=== PATIENT | female | born 1930 | race Caucasian/White ===

== ENCOUNTER 2017-01-16 13:35 | Emergency (ER) | payer MEDICARE ==
[~2017-01-16] VITALS: Wt 65.8 kg
[~2017-01-16 13:35] MED LIST: AMLODIPINE10 MG PO; BUSPIRONE10 MG PO; CARAFATE1 G1 PO; CIPRO500 MG PO; CITALOPRAM20 MG PO; MAG-OX 400400 MG PO; NORCO 5-325 TA1 EACH PO; POTASSIUM20 MEQ PO; PRILOSEC20 MG PO; SYNTHROID,LEVO50 MCG PO; VITAMIN D-32000 UNIT PO; ZESTRIL,PRINIVIL5 MG PO
[2017-01-16 13:36] VITALS: BP 157/90
[2017-01-16 14:21] LABS: BASO % 0.2 % (0.0-1.0); EOS # 0.1 10*3/uL (0.0-0.4); EOS % 1.6 % (1.0-4.0); HEMATOCRIT 33.7 % (37.0-47.0); HEMOGLOBIN 10.8 g/dl (12.0-16.0); LYMPH # 1.3 10*3/uL (1.3-4.4); LYMPH % 15.9 % (27.0-41.0); MEAN CELL VOLUME 100.6 fl (81.0-99.0); MEAN CORPUSCULAR HGB 32.2 pg (27.0-31.0); MEAN PLATELET VOLUME 11.1 fl (9.6-12.3); MONO # 0.6 10*3/uL (0.1-1.0); MONO % 6.9 % (3.0-9.0); NEUT # 6.2 10*3/uL (2.3-7.9); NEUT % 75.2 % (47.0-73.0); PLATELET COUNT AUTOMATED 127 10*3/uL (130-400); RED BLOOD COUNT 3.35 10*6/uL (4.10-5.10); RED CELL DISTRI WIDTH 13.7 % (0-14.5); WHITE BLOOD COUNT 8.3 10*3/uL (4.8-10.8)
[2017-01-16 14:36] LABS: ALBUMIN 3.7 gm/dl (3.1-4.5); BILIRUBIN, TOTAL 0.4 mg/dl (0.2-1.0); POTASSIUM 5.6 mmol/L (3.5-5.1); TOTAL PROTEIN 6.5 gm/dL (6.4-8.2)
== END 2017-01-16 19:02 | disposition home or self-care (01) ==
LOC: ED 13:35
PROVIDERS: Emergency Medicine
DX: S01.81XA Laceration without foreign body of other part of head, initial encounter (principal); Z86.73 Personal history of transient ischemic attack (TIA), and cerebral infarction without residual deficits; K21.9 Gastro-esophageal reflux disease without esophagitis; I12.9 Hypertensive chronic kidney disease with stage 1 through stage 4 chronic kidney disease, or unspecified chronic kidney disease; N18.9 Chronic kidney disease, unspecified; E03.9 Hypothyroidism, unspecified; Z79.899 Other long term (current) drug therapy; Z88.1 Allergy status to other antibiotic agents; W18.39XA Other fall on same level, initial encounter; Y93.89 Activity, other specified; Y92.009 Unspecified place in unspecified non-institutional (private) residence as the place of occurrence of the external cause; Y99.8 Other external cause status

== ENCOUNTER → 2017-04-25 | Outpatient (CLI) | payer MEDICARE ==
[2017-04-25 16:20] LABS: BASO % 0.2 % (0.0-1.0); EOS # 0.1 10*3/uL (0.0-0.4); EOS % 1.2 % (1.0-4.0); HEMATOCRIT 34.7 % (37.0-47.0); HEMOGLOBIN 10.8 g/dl (12.0-16.0); LYMPH # 1.4 10*3/uL (1.3-4.4); LYMPH % 15.4 % (27.0-41.0); MEAN CELL VOLUME 99.1 fl (81.0-99.0); MEAN CORPUSCULAR HGB 30.9 pg (27.0-31.0); MEAN CORPUSCULAR HGB CONC 31.1 g/dl (33.0-37.0); MEAN PLATELET VOLUME 11.5 fl (9.6-12.3); MONO # 0.7 10*3/uL (0.1-1.0); MONO % 7.8 % (3.0-9.0); NEUT % 75.1 % (47.0-73.0); PLATELET COUNT AUTOMATED 145 10*3/uL (130-400); RED CELL DISTRI WIDTH 12.8 % (0-14.5); WHITE BLOOD COUNT 9.3 10*3/uL (4.8-10.8)
[2017-04-25 16:35] LABS: ALBUMIN 3.8 gm/dl (3.1-4.5); CREATININE 1.65 mg/dL (0.55-1.02); POTASSIUM 5.3 mmol/L (3.5-5.1); TOTAL PROTEIN 6.8 gm/dL (6.4-8.2)
== END | disposition home or self-care (01) ==
LOC: LAB 15:10
PROVIDERS: Family Medicine
DX: I51.7 Cardiomegaly (principal); I50.9 Heart failure, unspecified; M79.89 Other specified soft tissue disorders

== ENCOUNTER → 2017-05-01 | Outpatient (CLI) | payer MEDICARE ==
[2017-05-01 11:31] LABS: ALBUMIN 3.7 gm/dl (3.1-4.5); CREATININE 2.79 mg/dL (0.55-1.02); POTASSIUM 5.6 mmol/L (3.5-5.1)
[2017-05-01 11:42] LABS: THYROID STIM HORMONE (HS) 1.95 uIU/ml (0.358-4.75)
== END | disposition home or self-care (01) ==
LOC: LAB 10:44
PROVIDERS: Internal Medicine Cardiovascular Disease
DX: R60.0 Localized edema (principal); Z86.73 Personal history of transient ischemic attack (TIA), and cerebral infarction without residual deficits; Z79.899 Other long term (current) drug therapy

== ENCOUNTER → 2017-05-04 | Outpatient (CLI) | payer MEDICARE ==
[2017-05-04 17:19] LABS: BILIRUBIN NEGATIVE (NEGATIVE); BLOOD NEGATIVE (NEGATIVE); CLARITY CLEAR (CLEAR); COLOR YELLOW (YELLOW); GLUCOSE NEGATIVE (NEGATIVE); KETONE NEGATIVE (NEGATIVE); LEUKO ESTERASE TRACE (NEGATIVE); NITRITE NEGATIVE (NEGATIVE); SPECIFIC GRAVITY <= 1.005 (1.005-1.030); UROBILINOGEN 0.2 E.U./dl (0.2-1.0)
[2017-05-04 17:30] LABS: CREATININE 2.35 mg/dL (0.55-1.02); PHOSPHOROUS 4.2 mg/dL (2.5-4.9)
[2017-05-04 17:37] LABS: BACTERIA TRACE; EPITHELIAL CELLS 40-45; RBC 0-2 rbc/hpf (0-2)
[2017-05-04 18:07] LABS: PTH INTACT 273.4 pg/mL (14.0-72.0)
[2017-05-04 18:08] LABS: VITAMIN D, 25-HYDROXY 41.5 ng/mL (30-100)
[2017-05-05 15:07] LABS: CREATININE,URINE 49.4 mg/dL (Not Estab.); MICRO ALBUMIN/CRE RATIO 9.5 (0.0-30.0)
== END ==
LOC: LAB 16:48
PROVIDERS: Internal Medicine Nephrology
DX: N18.9 Chronic kidney disease, unspecified (principal); E87.5 Hyperkalemia; I50.9 Heart failure, unspecified; Z79.899 Other long term (current) drug therapy

== ENCOUNTER → 2017-05-07 | Outpatient (CLI) | payer MEDICARE ==
[2017-05-07 13:37] LABS: HEMATOCRIT 36.6 % (37.0-47.0); HEMOGLOBIN 11.5 g/dl (12.0-16.0)
[2017-05-07 13:58] LABS: CREATININE 2.55 mg/dL (0.55-1.02); PHOSPHOROUS 3.9 mg/dL (2.5-4.9); POTASSIUM 4.2 mmol/L (3.5-5.1)
[2017-05-07 14:22] LABS: VITAMIN D, 25-HYDROXY 49.3 ng/mL (30-100)
[2017-05-07 14:23] LABS: PTH INTACT 250.8 pg/mL (14.0-72.0)
[2017-05-07 18:32] LABS: BILIRUBIN NEGATIVE (NEGATIVE); BLOOD NEGATIVE (NEGATIVE); CLARITY CLEAR (CLEAR); COLOR YELLOW (YELLOW); GLUCOSE NEGATIVE (NEGATIVE); KETONE NEGATIVE (NEGATIVE); LEUKO ESTERASE NEGATIVE (NEGATIVE); NITRITE NEGATIVE (NEGATIVE); PH 5.5 (5.0-9.0); UROBILINOGEN 0.2 E.U./dl (0.2-1.0)
[2017-05-07 18:49] LABS: BACTERIA 2+; EPITHELIAL CELLS 20-25; HYALINE CAST TNTC; RBC 0-2 rbc/hpf (0-2)
[2017-05-08 10:05] LABS: CREATININE,URINE 83.3 mg/dL (Not Estab.)
== END | disposition home or self-care (01) ==
LOC: LAB 12:56
PROVIDERS: Internal Medicine Nephrology
DX: N18.9 Chronic kidney disease, unspecified (principal); E87.5 Hyperkalemia; E55.9 Vitamin D deficiency, unspecified; N39.0 Urinary tract infection, site not specified; Z79.899 Other long term (current) drug therapy

== ENCOUNTER 2017-05-09 16:16 | Emergency (ER) | payer MEDICARE ==
[~2017-05-09] VITALS: Wt 61.2 kg
[2017-05-09 16:22] VITALS: BP 155/55
== END 2017-05-09 16:48 | disposition home or self-care (01) ==
LOC: ED 16:16
DX: S61.411A Laceration without foreign body of right hand, initial encounter (principal); Z88.2 Allergy status to sulfonamides; Z88.1 Allergy status to other antibiotic agents; Z88.8 Allergy status to other drugs, medicaments and biological substances; Z79.899 Other long term (current) drug therapy; Z90.49 Acquired absence of other specified parts of digestive tract; X58.XXXA Exposure to other specified factors, initial encounter; Y93.89 Activity, other specified; Y92.89 Other specified places as the place of occurrence of the external cause; Y99.8 Other external cause status

== ENCOUNTER → 2017-05-15 | Outpatient (CLI) | payer MEDICARE | END | disposition home or self-care (01) | LOC: US 01:22 | DX: N17.9 Acute kidney failure, unspecified (principal) ==

== ENCOUNTER → 2017-06-01 | Outpatient (CLI) | payer MEDICARE ==
[2017-06-01 15:07] LABS: CREATININE 3.18 mg/dL (0.55-1.02); POTASSIUM 4.2 mmol/L (3.5-5.1)
== END | disposition home or self-care (01) ==
LOC: LAB 13:59
PROVIDERS: Internal Medicine Nephrology
DX: N17.9 Acute kidney failure, unspecified (principal)

== ENCOUNTER → 2017-06-21 | Outpatient (CLI) | payer MEDICARE ==
[2017-06-21 12:05] LABS: CREATININE 2.37 mg/dL (0.55-1.02); POTASSIUM 4.1 mmol/L (3.5-5.1)
== END | disposition home or self-care (01) ==
LOC: LAB 11:17
PROVIDERS: Internal Medicine Nephrology
DX: N17.9 Acute kidney failure, unspecified (principal)

== ENCOUNTER → 2017-09-23 | Outpatient (CLI) | payer MEDICARE ==
[2017-09-25 11:06] LABS: CREATININE,URINE 84.3 mg/dL (Not Estab.); MICROALBUMIN EXCRETION RATE 193.8 ug/min (0.0-20.0)
== END | disposition home or self-care (01) ==
LOC: LAB 13:52
PROVIDERS: Internal Medicine Nephrology
DX: N18.4 Chronic kidney disease, stage 4 (severe) (principal)

== ENCOUNTER 2017-10-22 22:47 | Inpatient (IN) | payer MEDICARE ==
[~2017-10-22] VITALS: Ht 157.4 cm; Wt 60.8 kg
--- NOTE | ~2017-10-22 | CON ---
[place], [place] REPORT OF CONSULTATION NAME: CHLESI ZULUAGA UNIT #: [id number] ROOM: 503 DOCTOR: KELSEY RYDER FACCSUDHIR BIRTHDATE: [birth year] DOS: 10/24/2017 CARDIOLOGY CONSULTATION HISTORY OF PRESENT ILLNESS: The patient came in with history of left chest discomfort now or prior to coming to the Emergency Room and also mild dyspnea and the patient has history of coronary artery disease, severe aortic stenosis and a myocardial infarction and chronic kidney disease, CKD III or IV and Nephrology is following the patient and underwent a myocardial perfusion scan is abnormal indicating myocardial ischemia. The patient has a previous history of CVA about 3 years ago. The patient has a history of chronic aortic stenosis, some left ventricular dysfunction and history of CVA in the past and diverticulosis. Mild expressive aphasia. History of hypertension, hypertensive cardiovascular disease, hypertensive renovascular disease. The patient has a previous history of bilateral knee replacement, cataract surgery and colon resection. PHYSICAL EXAMINATION: VITAL SIGNS: Stable. GENERAL: Alert. SKIN: Warm and not diaphoretic. NECK: Supple. LUNGS: No rales heard. HEART: S1, S2 regular, 2-3/6 systolic murmur. ABDOMEN: Soft. Color is good, not diaphoretic. EXTREMITIES: No cyanosis. IMPRESSION: 1. Left ventricular dysfunction. 2. Aortic stenosis. 3. Myocardial ischemic heart disease. PLAN: May consider a coronary artery possible revascularization. Options, procedure, complications, morbidity, mortality risk is explained and renal consultation to monitor the chronic kidney disease. SUDHIR COLE MD CM:CONSTR:REPORT OF CONSULTATION 1114 10/25/17 0058 interface CHANTE MUÑOZ MD
[2017-10-22 22:50] VITALS: BP 153/60
[2017-10-22] MEDS ORDERED: TOPROL XL25 MG PO (23:07)
[2017-10-22 23:21] VITALS: BP 112/49
[2017-10-22 23:29] LABS: ACT PARTIAL THROMBO TIME 24.7 SECONDS (20.8-31.5)
[2017-10-22 23:30] LABS: BASO % 0.3 % (0.0-1.0); EOS # 0.1 10*3/uL (0.0-0.4); EOS % 1.1 % (1.0-4.0); HEMATOCRIT 32.8 % (37.0-47.0); HEMOGLOBIN 10.6 g/dl (12.0-16.0); LYMPH # 2.2 10*3/uL (1.3-4.4); LYMPH % 21.3 % (27.0-41.0); MEAN CELL VOLUME 98.5 fl (81.0-99.0); MEAN CORPUSCULAR HGB 31.8 pg (27.0-31.0); MEAN CORPUSCULAR HGB CONC 32.3 g/dl (33.0-37.0); MEAN PLATELET VOLUME 10.9 fl (9.6-12.3); MONO % 9.4 % (3.0-9.0); NEUT # 7.1 10*3/uL (2.3-7.9); NEUT % 67.7 % (47.0-73.0); PLATELET COUNT AUTOMATED 129 10*3/uL (130-400); RED BLOOD COUNT 3.33 10*6/uL (4.10-5.10); RED CELL DISTRI WIDTH 13.1 % (0-14.5); WHITE BLOOD COUNT 10.5 10*3/uL (4.8-10.8)
[2017-10-22 23:40] LABS: ALBUMIN 3.5 gm/dl (3.1-4.5); CREATININE 2.48 mg/dL (0.55-1.02); POTASSIUM 3.9 mmol/L (3.5-5.1); TOTAL PROTEIN 6.2 gm/dL (6.4-8.2)
[2017-10-22 23:44] LABS: TROPONIN I 0.067 ng/ml (<0.045)
[2017-10-22 23:55] VITALS: BP 132/59
[2017-10-23 00:06] VITALS: BP 137/65
[2017-10-23 00:20] VITALS: BP 125/79
[2017-10-23 03:24] LABS: BASO % 0.2 % (0.0-1.0); EOS # 0.1 10*3/uL (0.0-0.4); EOS % 1.3 % (1.0-4.0); HEMATOCRIT 30.2 % (37.0-47.0); HEMOGLOBIN 9.8 g/dl (12.0-16.0); LYMPH # 2.3 10*3/uL (1.3-4.4); MEAN CELL VOLUME 97.7 fl (81.0-99.0); MEAN CORPUSCULAR HGB 31.7 pg (27.0-31.0); MEAN CORPUSCULAR HGB CONC 32.5 g/dl (33.0-37.0); MEAN PLATELET VOLUME 10.1 fl (9.6-12.3); MONO # 0.8 10*3/uL (0.1-1.0); MONO % 9.2 % (3.0-9.0); NEUT # 5.8 10*3/uL (2.3-7.9); NEUT % 63.9 % (47.0-73.0); PLATELET COUNT AUTOMATED 116 10*3/uL (130-400); RED BLOOD COUNT 3.09 10*6/uL (4.10-5.10); RED CELL DISTRI WIDTH 13.1 % (0-14.5); WHITE BLOOD COUNT 9.1 10*3/uL (4.8-10.8)
[2017-10-23 03:40] LABS: ALBUMIN 3.1 gm/dl (3.1-4.5); CREATININE 2.33 mg/dL (0.55-1.02); PHOSPHOROUS 3.9 mg/dL (2.5-4.9); POTASSIUM 3.5 mmol/L (3.5-5.1); TOTAL PROTEIN 5.5 gm/dL (6.4-8.2)
[2017-10-23 03:48] LABS: THYROID STIM HORMONE (HS) 3.05 uIU/ml (0.358-4.75)
[2017-10-23 08:00] VITALS: BP 160/55
[2017-10-23] MEDS ORDERED: FUROSEMIDE20 M1 PO (09:56)
[2017-10-23] MEDS ORDERED: METOLAZONE2.5 MG PO (10:27)
[2017-10-23] MEDS ORDERED: CALCITRIOL0.25 MCG PO (10:28)
[2017-10-23 12:00] VITALS: BP 150/57
[2017-10-23 16:00] VITALS: BP 132/54
[2017-10-23 20:00] VITALS: BP 122/51
[2017-10-24] VITALS: BP 118/61
[2017-10-24 08:00] VITALS: BP 136/86
== END 2017-10-24 08:38 | disposition other institution (70) | DRG 281 ==
LOC: ED 22:47 → 5E 23:56 → EDHOLD 23:56 → 5E 10-23 00:03
PROVIDERS: Emergency Medicine Emergency Medical Services; Internal Medicine Hospice and Palliative Medicine
PROC: 4A02XM4 Measurement of Cardiac Total Activity, External Approach (ICD-10-PCS; principal; 2017-10-23)
PROC: 3E073KZ Introduction of Other Diagnostic Substance into Coronary Artery, Percutaneous Approach (ICD-10-PCS; principal; 2017-10-23)
DX: I21.4 Non-ST elevation (NSTEMI) myocardial infarction (principal); N18.4 Chronic kidney disease, stage 4 (severe); E83.41 Hypermagnesemia; I35.0 Nonrheumatic aortic (valve) stenosis; D64.9 Anemia, unspecified; I25.119 Atherosclerotic heart disease of native coronary artery with unspecified angina pectoris; D72.810 Lymphocytopenia; I12.9 Hypertensive chronic kidney disease with stage 1 through stage 4 chronic kidney disease, or unspecified chronic kidney disease; E03.9 Hypothyroidism, unspecified; Z96.653 Presence of artificial knee joint, bilateral; K21.9 Gastro-esophageal reflux disease without esophagitis; K57.90 Diverticulosis of intestine, part unspecified, without perforation or abscess without bleeding; H54.61 Unqualified visual loss, right eye, normal vision left eye; Z88.1 Allergy status to other antibiotic agents; Z88.2 Allergy status to sulfonamides; Z88.8 Allergy status to other drugs, medicaments and biological substances; Z79.899 Other long term (current) drug therapy; I69.320 Aphasia following cerebral infarction; Z90.49 Acquired absence of other specified parts of digestive tract; Z98.49 Cataract extraction status, unspecified eye; Z90.721 Acquired absence of ovaries, unilateral; Z87.891 Personal history of nicotine dependence; Z82.49 Family history of ischemic heart disease and other diseases of the circulatory system

== ENCOUNTER 2017-10-30 11:53 | Emergency (ER) | payer MEDICARE ==
[~2017-10-30] VITALS: Ht 154.9 cm; Wt 90.7 kg
[~2017-10-30 11:53] MED LIST changes: +CALCITRIOL0.25 MCG PO; +FUROSEMIDE20 M1 PO; +METOLAZONE2.5 MG PO; +TOPROL XL25 MG PO
[2017-10-30 11:56] VITALS: BP 149/57
== END 2017-10-30 13:10 | disposition home or self-care (01) ==
LOC: ED 11:53
DX: S51.812A Laceration without foreign body of left forearm, initial encounter (principal); Z88.1 Allergy status to other antibiotic agents; Z88.8 Allergy status to other drugs, medicaments and biological substances; Z79.899 Other long term (current) drug therapy; Z87.891 Personal history of nicotine dependence; W01.198A Fall on same level from slipping, tripping and stumbling with subsequent striking against other object, initial encounter; Y93.89 Activity, other specified; Y92.009 Unspecified place in unspecified non-institutional (private) residence as the place of occurrence of the external cause; Y99.8 Other external cause status

== ENCOUNTER 2017-12-03 13:28 | Emergency (ER) | payer MEDICARE ==
[~2017-12-03] VITALS: Wt 63.5 kg
[2017-12-03 13:37] VITALS: BP 141/54
[2018-01-22] MEDS ORDERED: B12,B-12,B 12500 MC1 PO (12:28)
[2018-01-22] MEDS ORDERED: ASPIRIN ADULT L81 M2 PO (12:28)
[2018-01-22] MEDS ORDERED: DONEPEZIL HCL5 MG PO (12:28)
[2018-01-22] MEDS ORDERED: CARVEDILOL3.125 MG PO (12:28)
== END 2017-12-03 15:20 | disposition home or self-care (01) ==
LOC: ED 13:28
DX: S30.0XXA Contusion of lower back and pelvis, initial encounter (principal); I25.10 Atherosclerotic heart disease of native coronary artery without angina pectoris; I12.9 Hypertensive chronic kidney disease with stage 1 through stage 4 chronic kidney disease, or unspecified chronic kidney disease; N18.9 Chronic kidney disease, unspecified; K21.9 Gastro-esophageal reflux disease without esophagitis; E03.9 Hypothyroidism, unspecified; I25.2 Old myocardial infarction; Z87.891 Personal history of nicotine dependence; Z90.49 Acquired absence of other specified parts of digestive tract; Z98.890 Other specified postprocedural states; Z86.73 Personal history of transient ischemic attack (TIA), and cerebral infarction without residual deficits; Z96.653 Presence of artificial knee joint, bilateral; Z79.899 Other long term (current) drug therapy; Z88.1 Allergy status to other antibiotic agents; Z88.8 Allergy status to other drugs, medicaments and biological substances; W19.XXXA Unspecified fall, initial encounter; Y93.89 Activity, other specified; Y92.89 Other specified places as the place of occurrence of the external cause; Y99.9 Unspecified external cause status

== ENCOUNTER → 2017-12-21 | Outpatient (CLI) | payer MEDICARE ==
[~2017-12-21] MED LIST changes: +ASPIRIN ADULT L81 M2 PO; +B12,B-12,B 12500 MC1 PO; +CARVEDILOL3.125 MG PO; +DONEPEZIL HCL5 MG PO; +KEFLEX500 M1 PO; +ZOFRAN4 MG PO
== END | disposition home or self-care (01) ==
LOC: NM 09:54
DX: M25.551 Pain in right hip (principal)

== ENCOUNTER 2018-01-12 13:17 | Emergency (ER) | payer MEDICARE ==
[~2018-01-12] VITALS: Ht 160 cm; Wt 65.8 kg
[~2018-01-12 13:17] MED LIST changes: -ASPIRIN ADULT L81 M2 PO; -B12,B-12,B 12500 MC1 PO; -CARVEDILOL3.125 MG PO; -DONEPEZIL HCL5 MG PO; -KEFLEX500 M1 PO; -ZOFRAN4 MG PO
[2018-01-12 13:24] VITALS: BP 144/53
[2018-01-12] MEDS ORDERED: ZOFRAN4 MG PO (14:12)
[2018-01-12] MEDS ORDERED: KEFLEX500 M1 PO (14:12)
== END 2018-01-12 15:00 | disposition home or self-care (01) ==
LOC: ED 13:17
DX: S61.511A Laceration without foreign body of right wrist, initial encounter (principal); R03.0 Elevated blood-pressure reading, without diagnosis of hypertension; Z88.2 Allergy status to sulfonamides; Z88.1 Allergy status to other antibiotic agents; Z88.8 Allergy status to other drugs, medicaments and biological substances; Z79.899 Other long term (current) drug therapy; Z90.49 Acquired absence of other specified parts of digestive tract; Z98.890 Other specified postprocedural states; Z87.891 Personal history of nicotine dependence; W19.XXXA Unspecified fall, initial encounter; Y93.89 Activity, other specified; Y92.89 Other specified places as the place of occurrence of the external cause; Y99.8 Other external cause status

== ENCOUNTER → 2018-01-31 | Outpatient (CLI) | payer MEDICARE ==
[~2018-01-31] MED LIST changes: +ASPIRIN ADULT L81 M2 PO; +B12,B-12,B 12500 MC1 PO; +CARVEDILOL3.125 MG PO; +COREG12.5 M1 PO; +COREG6.25 MG PO; +DONEPEZIL HCL5 MG PO; +KEFLEX500 M1 PO; +KLOR-CON M1010 ME1 PO; -POTASSIUM20 MEQ PO; +PRAVACHOL40 MG PO; +ZOFRAN4 MG PO
[2018-01-31 11:54] LABS: CREATININE 2.41 mg/dL (0.55-1.02); POTASSIUM 3.6 mmol/L (3.5-5.1)
== END | disposition home or self-care (01) ==
LOC: LAB 10:43
PROVIDERS: Internal Medicine Nephrology
DX: N18.9 Chronic kidney disease, unspecified (principal)

== ENCOUNTER 2018-05-04 18:12 | Inpatient (IN) | payer MEDICARE ==
[~2018-05-04] VITALS: Ht 157.5 cm; Wt 58.7 kg
--- NOTE | ~2018-05-04 | PR ---
[place], [place] PROGRESS NOTE NAME: CHELSI ZULUAGA UNIT #: [id number] ROOM: 503 DOCTOR: MIRNA SMART MD,JANESSA BIRTHDATE: [birth year] DOS: 05/09/2018 SUBJECTIVE: She was noted comfortable at this time, resting in the bed, eating her breakfast, has been noted expressive aphasia. State few words when she has been asked a question. There were no symptoms of respiratory distress, coughing or wheezing noted. OBJECTIVE: VITAL SIGNS: For the patient which were recorded shows a normal temperature, respirations 16, heart rate 62, blood pressure 131/53. Pulse oxygen saturation recorded as 93% saturation at rest on room air. HEENT: Showed no new change. Chronic changes for this patient with age-related changes. CARDIOVASCULAR: S1, S2 audible. LUNGS: Occasional crackles, no wheezing. ABDOMEN: Soft and nontender. Bowel sounds present. EXTREMITIES: No acute edema. LABORATORY DATA: BMP: BUN 61 and creatinine 3.64. Chest x-ray that was done yesterday was ordered. PA and lateral view only a portable x-ray was completed yesterday and was noted with marked improvement in the pulmonary infiltration with a small remaining interstitial fluid. IMPRESSION: Resolving acute renal failure of the patient as well as improving congestive heart failure. There was no evidence of acute pneumonia. PLAN OF MANAGEMENT: Consider discontinuation of the antibiotics. Continuation of other therapy, plan of management. Discharge planning per primary care physician. JANESSA BRADLEY MD CM:PNTRANS [id number] JANESSA SMART MD 05/09/18 1443 interface
--- NOTE | ~2018-05-04 | PR ---
[place], [place] PROGRESS NOTE NAME: CHELSI ZULUAGA UNIT #: [id number] ROOM: 503 DOCTOR: DEMETRIUS KITCHEN MD BIRTHDATE: [birth year] DOS: 05/08/2018 SUBJECTIVE: She had electrical cardioversion done yesterday for atrial flutter and reverted to normal sinus rhythm. She is on amiodarone and also is anticoagulated. She feels very well today. She has no shortness of breath. No palpitations. She feels stronger and her breathing is much better. DEMETRIUS KITCHEN MD CM:PNTRANS 1139 [id number] DEMETRIUS KITCHEN MD 05/09/18 0019 interface
--- NOTE | ~2018-05-04 | CON ---
[place], [place] REPORT OF CONSULTATION NAME: CHELSI ZULUAGA UNIT #: [id number] ROOM: 503 DOCTOR: SUDHIR COLE MD, FACC BIRTHDATE: [birth year] DOS: 05/06/2018 CARDIOLOGY CONSULTATION HISTORY OF PRESENT ILLNESS: The patient is an 87-year-old female came in with history of choking sensation while eating and progressive dyspnea and fatigue and weakness. The patient was brought in through the Emergency Room, found to have severe aortic stenosis. We talked to the family several times on previous admissions. No intervention, no procedures, no surgical repair or any transthoracic aortic valve replacement. Since the patient is very fragile, markedly increased risk for any intervention. The patient has some pus in both lungs, right greater than the left, possible aspiration pneumonia is one of the considerations. PAST MEDICAL HISTORY: Include coronary artery disease, atrial fibrillation, blind right eye, chronic kidney disease stage 4, history of CVA, history of coronary artery disease, severe aortic stenosis and diastolic heart failure. Plan, continue the current management with gingerly adjustment of the medications in order to note the threshold and conservative management. No valve replacement reviewed, surgical or nonsurgical. ALLERGIES: The patient also has multiple allergies as listed. PHYSICAL EXAMINATION: VITAL SIGNS: Stable, 2-3/6 ejection systolic murmur present. LUNGS: Diminished breath sounds at bases. HEART: A 2/6 systolic murmur. ABDOMEN: Soft. SKIN: Color is good, not diaphoretic. NEUROLOGIC: Alert. LABORATORY DATA: Creatinine is 3.77, this is pretty much chronic and the BUN is 52. Electrolytes are unremarkable. Sodium 145. DIAGNOSIS: Severe aortic stenosis with decompensation. PLAN: Discussed with the family in the hospital, also discussed with the daughter. They all agreed and we have been talking to them for a while. Consideration may be given for hospice and require an hospitalist to talk to the family and will continue the current management. Prognosis is guarded because of severe aortic stenosis, inoperable. Thank you very much for asking me to see the patient. We will follow the patient. [place], [place] REPORT OF CONSULTATION NAME: CHELSI ZULUAGA UNIT #: [id number] ROOM: 503 DOCTOR: SUDHIR COLE MD, FACC BIRTHDATE: [birth year] SUDHIR COLE MD CM:CONSTR:REPORT OF CONSULTATION 1133 05/08/18 0051 interface
--- NOTE | ~2018-05-04 | CON ---
[place], [place] REPORT OF CONSULTATION NAME: CHELSI ZULUAGA UNIT #: [id number] ROOM: 503 DOCTOR: MIRNA SMART MDJANESSA BIRTHDATE: [birth year] DOS: 05/08/2018 PULMONARY CONSULTATION, EVALUATION AND MANAGEMENT CONSULTATION REQUESTED BY: Guru Jack MD REASON FOR CONSULTATION: For possibility of bronchoscopy with current acute pneumonia. HISTORY OF PRESENT ILLNESS: This is an 87-year-old white female patient was unable to give me history has been noted with past stroke and expressive aphasia. History is contained for documentation. Review of the medical record documentation done by the other physician note as well as the nurse's notes. The patient has been known with history of severe aortic stenosis with previously hospitalized several times per Cardiology note for the medical management of congestive heart failure. The patient presented to the hospital as the patient was eating chicken nugget and was noted, unable to swallow. The patient has been assessed and managed for that. The patient has been admitted to the hospital noted bilateral pulmonary infiltration with possibility of pneumonia and aspiration, which was considered. She has been resting comfortably this morning on the chair. She has not been noted with excessive coughing upon assessment in the room. She has not been reported symptoms of shortness of breath as well. There were no symptoms of hemoptysis reported in the past. REVIEW OF SYSTEMS: Could not be completed since the patient is unable to have a verbal communication. PAST MEDICAL HISTORY: Reported as: 1. History of permanent atrial fibrillation. 2. Blindness of the right eye. 3. Coronary artery disease. 4. Acute coronary artery disease, stage 4. 5. The patient with expressive aphasia and hemiparesis. 6. Severe aortic stenosis. 7. Gastroesophageal reflux. 8. Essential hypertension. 9. Hypothyroidism. 10. Coronary artery disease with myocardial infarction. PAST SURGICAL HISTORY: Reported: 1. Bilateral total knee replacement. 2. Cataract extraction and implantation. 3. Cholecystectomy. 4. Partial colon resection, details missing. 5. Surgery and removal of the ovary as well. Again, the details were not clearly known. SOCIAL HISTORY: The patient has been noted the past tobacco use, stopped smoking 30 years ago. Further history was not available. Denies history of [place], [place] REPORT OF CONSULTATION NAME: CHELSI ZULUAGA UNIT #: [id number] ROOM: [facility] DOCTOR: MIRNA SMART MD,JANESSA BIRTHDATE: [birth year] alcohol use or illicit drug use. FAMILY HISTORY: Reported as mother at 56 of complication of myocardial infarction. Father as a result of some kind of an injury. HOME MEDICATIONS: The patient listed use of aspirin, calcitriol, Coreg, vitamin B12, [place], levothyroxine, digoxin, omeprazole, potassium chloride, and Pravachol. DRUG ALLERGY HISTORY: Reported: 1. SULFA DRUGS. 2. MACROBID. 3. CIPROFLOXACIN. PHYSICAL EXAMINATION: GENERAL: This is an 87-year-old elderly female, currently sitting on the chair without acute distress noted, expressive aphasia without any acute distress. VITAL SIGNS: Height recorded and the weight on current admission by the nursing staff on 05/04/2018 as height of 5 feet 2 inches, weight 131 pounds, BMI 24. VITAL SIGNS: Normal temperature since admission, respiratory rate of 11-22, heart rate of 58-62, blood pressure 149/60-129/88. The pulse oxygen saturation recorded on 2 liters nasal cannula was 98% saturation. Admission pulse oxygen saturation was recorded as 70% with the BiPAP 100% oxygen on 05/04/2018 was 99%. HEENT: Examination shows head was atraumatic. Eyes nonicterus. NECK: Supple. CARDIOVASCULAR: S1, S2 is audible. LUNGS: The patient was noted with decreased breath sounds, occasional crackles of the lungs. ABDOMEN: Soft, nontender. Bowel sounds present. EXTREMITIES: Noted without any acute edema, clubbing, or cyanosis. CENTRAL NERVOUS SYSTEM: Excessive aphasia. Further examination could not be performed. MUSCULOSKELETAL: [id number]-[id number] senile kyphosis finding was noted. There were no other deformities. SKIN: Noted without lesions or rashes. LABORATORY DATA: Reviewed. CBC on 05/07/2018 yesterday, WBC count normal, hemoglobin 8, hematocrit 26.3, platelet count as 120,000. The renal function panel: BUN 61, creatinine 4.08, which has been gradually increasing. CBC, 05/04/2018 on admission, normal WBC count, hemoglobin 10.4, platelet count normal. CMP of 05/04/2018, on admission, BUN 38, creatinine 2.80. Glucose 175. Troponin of 3 sets were normal. Arterial blood gas of the patient on admission 05/04/2018, pH of 7.35, pCO2 of 44, pO2 of 60 on 100% nonrebreather mask on admission. The chest x-ray that was done on admission was noted with the finding of ____ with possibility of pulmonary edema with possible infiltration cannot be excluded. CT scan of the chest, which was done as well was reviewed, 05/05/2018. CT scan of the chest was noted with area of bronchus noted in the lungs with perihilar distribution of pulmonary infiltration, possibly consolidation, atelectasis in the left lower lobe was also considered. [place], [place] REPORT OF CONSULTATION NAME: CHELSI ZULUAGA UNIT #: [id number] ROOM: 503 DOCTOR: MIRNA SMART MD,[facility] BIRTHDATE: [birth year] IMPRESSION: 1. The patient will be currently admitted to the hospital with a foreign body suspected obstruction aspiration noted with finding consistent most likely congestive heart failure with edema and areas of atelectasis as well. 2. Progressive acute kidney injury. 3. History of cerebrovascular accident, which has been noted chronic expressive aphasia. 4. Severe aortic stenosis also noted inoperable as well. 5. Elderly status as well. 6. Physical appearance severe protein-calorie malnutrition status as well. There was no clinical evidence of pneumonia was noted. Current finding most likely resulting from the pulmonary edema, congestive heart failure would be considered very likely. 7. Severe acute hypoxemic respiratory failure with gradual improvement is suggestive improvement of pulmonary process as well. PLAN OF THERAPY: At this time, the patient would not be recommended any further investigation, such as bronchoscopy is necessary. Ordered a portable chest x-ray to assess the documentation for improvement of the abnormal pulmonary process. Titrate oxygen supplementation, maintain pulse oxygen 92% or greater. The patient has been currently assessed for possible discharge home with hospice service that would be appropriate for her age and multiple advanced medical conditions. Invasive procedure to be avoided. Usual care, other supportive therapy, plan of management, care plan of therapies as well. Other treatment changes will be recommended based on the assessment of chest x-ray for any further available information as well. Thank you for allowing me to participate in the care of this patient. JANESSA BRADLEY MD CM:CONSTR:REPORT OF CONSULTATION 1439 05/09/18 0301 interface
--- NOTE | ~2018-05-04 | EKG ---
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: ANDRA : 1930 Requested By: MURIEL WALTON Order Number: [id number] Reading MD: Elenita Rivera MD Measurements Intervals [place] Rate: 54 P: 78 DC: 185 QRS: 114 QRSD: 155 T: 31 QT: 487 QTc: 462 Interpretive Statements Sinus rhythm RBBB and LPFB Baseline wander in lead(s) II Compared to ECG 02/21/2018 14:24:24 Atrial flutter no longer present 2:1 AV block no longer present Ventricular premature complex(es) no longer present Possible ischemia no longer present Electronically Signed On 05-08-2018 7:22:46 PST by Elenita Rivera MD CM:EKGRPT:ELECTROCARDIOGRAM REPORT [id number] MURIEL MOSQUEDA DRAFT REPORT MURIEL WALTON M.D.
--- NOTE | ~2018-05-04 | CON ---
[place], [place] REPORT OF CONSULTATION NAME: CHELSI ZULUAGA UNIT #: [id number] ROOM: 503 DOCTOR: LOIDA BAUM BIRTHDATE: [birth year] DOS: 05/08/2018 PULMONARY CONSULTATION EVALUATION AND MANAGEMENT Consultation requested by Jad Fontana D.O. REASON FOR CONSULTATION: For assessment of current pneumonia with acute respiratory failure. HISTORY OF PRESENT ILLNESS: The patient is an 87-year-old female who presents to the hospital with episodes of choking on her food. The patient has a past medical history of a stroke and is unable to communicate or respond to questions currently. History was obtained from medical record provided by [facility] dated 05/06/2018. Per record, the patient's was present with her at the time of admission. The patient was recently discharged from SNF to home. The patient was also previously hospitalized at [facility] in February for an NSTEMI and transferred to [place] for a heart catheterization. REVIEW OF SYSTEMS: Unable to obtain at this time due to the patient's previous stroke and inability to communicate. PAST MEDICAL HISTORY: 1. Atrial fibrillation. 2. Severe aortic stenosis. 3. Chronic kidney disease. 4. Past medical history of NSTEMI. 5. GERD. 6. Coronary artery disease. SOCIAL HISTORY: The patient was a former smoker in distant past. She quit more than 30 years ago. The patient previously denied alcohol consumption or illicit drug use. PAST SURGICAL HISTORY: 1. History of colon resection. 2. History of cholecystectomy. 3. History of cataract surgery. 4. Bilateral knee replacement. 5. Removal of ovary. FAMILY HISTORY: Father , unknown cause. Mother at age 56, myocardial infarction. HOME MEDICATIONS: Aspirin, calcitriol, Coreg, vitamin B12, furosemide, [place], Synthroid, metolazone, Prilosec, potassium chloride, and Pravachol. DRUG ALLERGIES: SULFAMETHOXAZOLE, NITROFURANTOIN, TRIMETHOPRIM, CIPROFLOXACIN, SULFACETAMIDE. Allergy severity unknown except for BACTRIM, which presents with rash or swelling. [place], [place] REPORT OF CONSULTATION NAME: CHELSI ZULUAGA UNIT #: [id number] ROOM: 503 DOCTOR: LOIDA BAUM BIRTHDATE: [birth year] PHYSICAL EXAMINATION: GENERAL: The patient was noted awake and unable to respond or communicate. The patient appeared to be in no signs of acute distress. Height 5 feet 2 inches, BMI 24.6. VITAL SIGNS: Normal temperature, respiratory rate 17, heart rate 62, blood pressure 139/64, pulse ox on 2 L nasal cannula, 98% saturation. HEAD: Atraumatic. EYES: Nonicteric. NECK: Supple. CARDIOVASCULAR: S1, S2 audible. LUNGS: Clear and diminished bilaterally throughout. ABDOMEN: Soft, nontender. SKIN: No abnormal rashes. EXTREMITIES: Slight edema. MUSCULOSKELETAL: No acute deformities. CENTRAL NERVOUS SYSTEM: The patient aphasic, no other focal deficit was noted at this time. LABORATORY DATA: CBC on admission 05/04/2018, WBC 6.8, hemoglobin 10.4, platelet count 175. CMP on date of admission, 05/06/2018, BUN 52, creatinine 3.77, carbon dioxide 27, glucose 106. CBC on 05/08/2018. White blood cell count 10.6, hemoglobin 8, and platelet count 120. CMP on 05/08/2018, BUN 61, creatinine 3.64, carbon dioxide 25. On 05/05/2018, urine culture showed E. coli with 50,000 colony forming units. Blood culture, no bacterial growth. IMAGING STUDIES: Chest x-ray on 05/04/2018 showed new bilateral perihilar airspace opacities, right greater than left in the setting suspicious for aspiration pneumonia. On 05/05/2018, chest CT; impression, diffuse perihilar airspace opacities with more focal consolidation in the left lower lung. This is consistent with aspiration or multifocal pneumonia. Cardiomegaly with left atrial and left ventricular enlargement, diffuse atherosclerotic disease, thoracic aorta and coronary vessels. IMPRESSION: 1. Diffuse perihilar airspace opacities suggestive of multifocal pneumonia. 2. Acute kidney injury/acute tubular necrosis on chronic kidney disease stage 4. 3. Previous stroke. 4. Severe aortic stenosis. 5. Atrial fibrillation, on hospice consultation. PLAN OF MANAGEMENT: Continue current antibiotics, Unasyn as well as other supportive care management. Primary care provider consulted hospice. Further changes and management will depend on changing clinical status of the patient. [place], [place] REPORT OF CONSULTATION NAME: CHELSI ZULUAGA UNIT #: [id number] ROOM: [facility] DOCTOR: LOIDA BAUM BIRTHDATE: [birth year] LOIDA BAUM DO JANESSA BRADLEY MD CM:CONSTR:REPORT OF CONSULTATION 1340 05/09/18 1255 interface
--- NOTE | ~2018-05-04 | CON ---
[place], [place] REPORT OF CONSULTATION [facility]: [facility]: [id number] UNIT #: [id number] ROOM: [facility] DOCTOR: DEMETRIUS KITCHEN MD BIRTHDATE: [birth year] DOS: 05/05/[address] ____ patient and I was asked to evaluate her. HISTORY OF PRESENT ILLNESS: This is an 87-year-old -[place] woman with a history of a stroke some 7 years ago that left her with aphasia She has chronic kidney disease, essential hypertension and severe aortic stenosis. She carries a diagnosis of heart failure, essential hypertension, hypothyroidism, chronic anemia and also has had atrial fibrillation. She has not had cancer. She has had bilateral knee replacement surgery, cataract surgery with lens implantation, cholecystectomy, colon resection and oophorectomy. History is very difficult to obtain from the patient and most of the information was obtained from the ER note and her nurse. Apparently, she was eating chicken nuggets and choked on it and some liquid started coughing and was brought to the Emergency Department pretty much right away. She was not tachypneic. No fever or chills. She had no obvious chest pain. She does not smoke nor does she drink alcoholic beverages. HOME MEDICATIONS: Aspirin 81 daily, calcitriol 0.25 mg p.o., carvedilol 6.25 b.i.d., furosemide 20 mg p.o. daily, levothyroxine 50 mcg daily, metolazone 2.5 mg daily, omeprazole 20 mg daily, potassium chloride 10 mEq daily, pravastatin 40 mg daily and vitamin B12 500 mcg daily. PHYSICAL EXAMINATION: GENERAL: Examination of the patient who is on oxygen. She is not tachypneic. Her complexion is fine, not jaundiced or cyanosis. Today, she is not able to express herself because of aphasia. VITAL SIGNS: Pulse is regular at 60 beats per minute, blood pressure 128/58. NECK: JVP is normal. AJR is negative. No carotid bruits are present. HEART: There is no parasternal heave. Auscultation reveals a loud grade 5/6 very late peaking systolic murmur over the aortic area. Aortic component of the second heart sound is barely audible. Mild systolic murmur is audible over the apex. EXTREMITIES: She has no edema in the lower extremity. Pedal pulses are little difficult to appreciate. Femoral pulses are fine. RESPIRATORY: She has lot of crackles in both lungs with reduced breath sounds. ABDOMEN: Supple, nontender. No bruit. LABORATORY DATA: An ECG shows sinus bradycardia at 54 beats per minute and complete right bundle branch block. I reviewed her chest x-ray, which demonstrated pulmonary edema. It has a bat's wing appearance, no infarct. Troponin I level was 0.015, 0.21, 0.016. IMPRESSION: I believe this patient has significant bilateral pulmonary edema. [place], [place] REPORT OF CONSULTATION NAME: CHELSI ZULUAGA UNIT #: [id number] ROOM: [facility] DOCTOR: DEMETRIUS KITCHEN MD BIRTHDATE: [birth year] This is most likely due to the presence of severe calcific aortic stenosis. I doubt if aspiration pneumonia is truly present. This patient came to the Emergency Department pretty much soon after she choked and chemical pneumonitis takes time to develop, therefore, I do not believe if these changes are from aspiration pneumonia besides she has some asymmetrical abnormality in both lungs. RECOMMENDATIONS: She is on IV Bumex 2 mg daily and this should be continued while monitoring renal function and potassium. Chronic kidney disease is pretty much stable. ____ CVA with aphasia. I thank you for this consult. DEMETRIUS KITCHEN MD CM:CONSTR:REPORT OF CONSULTATION 1110 05/06/18 0337 interface
[2018-05-04 18:12] VITALS: BP 128/81
[~2018-05-04 18:12] MED LIST changes: -COREG6.25 MG PO
[2018-05-04 18:37] LABS: ABG BASE EXCESS -0.7 mmol/L (-2.0-2.0); ABG HCO3 24.4 mmol/l (22-26); ABG O2 SATURATION 89.9 % (95-97); ARTERIAL BLOOD GAS PCO2 44.2 mmHg (35-45); ARTERIAL BLOOD GAS PH 7.359 (7.35-7.45); ARTERIAL BLOOD GAS PO2 61.1 mmHg (80-90)
[2018-05-04 18:42] LABS: BASO % 0.3 % (0.0-1.0); EOS # 0.1 10*3/uL (0.0-0.4); EOS % 2.1 % (1.0-4.0); HEMATOCRIT 34.1 % (37.0-47.0); HEMOGLOBIN 10.4 g/dl (12.0-16.0); LYMPH # 1.4 10*3/uL (1.3-4.4); LYMPH % 20.5 % (27.0-41.0); MEAN CORPUSCULAR HGB 30.5 pg (27.0-31.0); MEAN CORPUSCULAR HGB CONC 30.5 g/dl (33.0-37.0); MEAN PLATELET VOLUME 11.3 fl (9.6-12.3); MONO # 0.4 10*3/uL (0.1-1.0); MONO % 5.3 % (3.0-9.0); NEUT # 4.9 10*3/uL (2.3-7.9); NEUT % 71.5 % (47.0-73.0); PLATELET COUNT AUTOMATED 175 10*3/uL (130-400); RED BLOOD COUNT 3.41 10*6/uL (4.10-5.10); RED CELL DISTRI WIDTH 13.6 % (0-14.5); WHITE BLOOD COUNT 6.8 10*3/uL (4.8-10.8)
[2018-05-04 18:46] VITALS: BP 109/43
[2018-05-04 19:00] LABS: ALBUMIN 2.9 gm/dl (3.1-4.5); BUN 38 mg/dl (7-24); CHLORIDE 109 mmol/L (98-107); POTASSIUM 4.1 mmol/L (3.5-5.1); SGOT/AST 14 IU/L (3-35); SGPT/ALT 13 U/L (12-78); SODIUM 145 mmol/L (136-145); TOTAL PROTEIN 6.3 gm/dL (6.4-8.2)
[2018-05-04 19:01] LABS: ALKALINE PHOSPHATASE 104 U/L (45-117)
[2018-05-04 19:02] LABS: TROPONIN I < 0.015 ng/ml (<0.045)
[2018-05-04 19:13] VITALS: BP 70/45
[2018-05-04 19:14] VITALS: BP 112/76
[2018-05-04 20:00] VITALS: BP 166/67
[2018-05-04] MEDS ORDERED: COREG6.25 MG PO (21:07)
[2018-05-05] VITALS (13 sets, daily range): BP systolic 64–669; BP diastolic 0–58
[2018-05-05 03:07] LABS: CREATININE 2.83 mg/dL (0.55-1.02); POTASSIUM 4.1 mmol/L (3.5-5.1)
[2018-05-05 03:24] LABS: THYROID STIM HORMONE (HS) 2.94 uIU/ml (0.358-4.75)
[2018-05-05 22:09] LABS: BILIRUBIN NEGATIVE (NEGATIVE); BLOOD TRACE-INTACT (NEGATIVE); CLARITY SL CLOUDY (CLEAR); COLOR YELLOW (YELLOW); GLUCOSE NEGATIVE (NEGATIVE); KETONE NEGATIVE (NEGATIVE); LEUKO ESTERASE 1+ (NEGATIVE); NITRITE NEGATIVE (NEGATIVE); PH 5.5 (5.0-9.0); SPECIFIC GRAVITY 1.015 (1.005-1.030); UROBILINOGEN 0.2 E.U./dl (0.2-1.0)
[2018-05-05 22:18] LABS: BACTERIA 2+; EPITHELIAL CELLS 30-35; HYALINE CAST 21-30; MUCOUS 2+; RBC 16-20 rbc/hpf (0-2); WBC 31-40 wbc/hpf (0-5)
[2018-05-06] VITALS: BP 110/53
[2018-05-06 04:00] VITALS: BP 90/40
[2018-05-06 05:09] LABS: BASO % 0.2 % (0.0-1.0); EOS % 0.1 % (1.0-4.0); HEMATOCRIT 29.5 % (37.0-47.0); HEMOGLOBIN 9.1 g/dl (12.0-16.0); LYMPH # 1.5 10*3/uL (1.3-4.4); LYMPH % 9.9 % (27.0-41.0); MEAN CELL VOLUME 98.3 fl (81.0-99.0); MEAN CORPUSCULAR HGB 30.3 pg (27.0-31.0); MEAN CORPUSCULAR HGB CONC 30.8 g/dl (33.0-37.0); MEAN PLATELET VOLUME 11.2 fl (9.6-12.3); MONO # 0.6 10*3/uL (0.1-1.0); MONO % 4.2 % (3.0-9.0); NEUT # 12.6 10*3/uL (2.3-7.9); NEUT % 85.3 % (47.0-73.0); PLATELET COUNT AUTOMATED 150 10*3/uL (130-400); RED CELL DISTRI WIDTH 13.7 % (0-14.5); WHITE BLOOD COUNT 14.7 10*3/uL (4.8-10.8)
[2018-05-06 05:23] LABS: CREATININE 3.77 mg/dL (0.55-1.02); PHOSPHOROUS 4.5 mg/dL (2.5-4.9); POTASSIUM 4.5 mmol/L (3.5-5.1)
[2018-05-06 06:41] LABS: URINE CREATININE RANDOM 66.5 mg/dL
[2018-05-06 07:12] LABS: PTH INTACT 169.5 pg/mL (18.5-88.0); VITAMIN D, 25-HYDROXY 38.3 ng/mL (30-100)
[2018-05-06 08:00] VITALS: BP 110/46
[2018-05-06 12:00] VITALS: BP 125/45
[2018-05-06 14:11] LABS: BILIRUBIN NEGATIVE (NEGATIVE); BLOOD TRACE-INTACT (NEGATIVE); CLARITY CLEAR (CLEAR); COLOR YELLOW (YELLOW); GLUCOSE NEGATIVE (NEGATIVE); KETONE NEGATIVE (NEGATIVE); LEUKO ESTERASE 1+ (NEGATIVE); NITRITE NEGATIVE (NEGATIVE); PH 5.5 (5.0-9.0); UROBILINOGEN 0.2 E.U./dl (0.2-1.0)
[2018-05-06 14:55] LABS: BACTERIA 2+; EPITHELIAL CELLS 0-2; HYALINE CAST TNTC; RBC 0-2 rbc/hpf (0-2)
[2018-05-06 15:57] VITALS: BP 105/44
[2018-05-06 20:00] VITALS: BP 116/53
[2018-05-07] VITALS: BP 126/48
[2018-05-07 04:00] VITALS: BP 137/59
[2018-05-07 05:39] LABS: ALBUMIN 1.9 gm/dl (3.1-4.5); CREATININE 4.08 mg/dL (0.55-1.02); PHOSPHOROUS 4.9 mg/dL (2.5-4.9)
[2018-05-07 06:04] LABS: BASO % 0.2 % (0.0-1.0); EOS # 0.1 10*3/uL (0.0-0.4); EOS % 0.9 % (1.0-4.0); HEMATOCRIT 26.3 % (37.0-47.0); LYMPH # 1.2 10*3/uL (1.3-4.4); LYMPH % 11.1 % (27.0-41.0); MEAN CELL VOLUME 98.5 fl (81.0-99.0); MEAN CORPUSCULAR HGB CONC 30.4 g/dl (33.0-37.0); MONO # 0.4 10*3/uL (0.1-1.0); MONO % 3.8 % (3.0-9.0); NEUT # 8.9 10*3/uL (2.3-7.9); NEUT % 83.6 % (47.0-73.0); PLATELET COUNT AUTOMATED 120 10*3/uL (130-400); RED BLOOD COUNT 2.67 10*6/uL (4.10-5.10); RED CELL DISTRI WIDTH 13.5 % (0-14.5); WHITE BLOOD COUNT 10.6 10*3/uL (4.8-10.8)
[2018-05-07 08:00] VITALS: BP 128/62
[2018-05-07 12:00] VITALS: BP 133/65
[2018-05-07 16:00] VITALS: BP 132/66
[2018-05-07 20:00] VITALS: BP 131/54
[2018-05-08] VITALS: BP 127/88
[2018-05-08 08:33] VITALS: BP 149/60
[2018-05-08 12:19] VITALS: BP 139/64
[2018-05-08 13:00] LABS: CREATININE 3.64 mg/dL (0.55-1.02); POTASSIUM 4.2 mmol/L (3.5-5.1)
[2018-05-08 16:00] VITALS: BP 112/54
[2018-05-08 20:00] VITALS: BP 135/58
[2018-05-09] VITALS: BP 149/61
[2018-05-09 08:00] VITALS: BP 131/53
[2018-05-09 12:00] VITALS: BP 114/45
== END 2018-05-09 15:15 | disposition home or self-care (01) | DRG 177 ==
LOC: ED 18:12 → ICCU 19:25 → EDHOLD 19:25 → ICCU 19:33 → 5E 05-07 13:56
PROVIDERS: Emergency Medicine; Internal Medicine; Internal Medicine Nephrology; Student in an Organized Health Care Education/Training Program
PROC: 5A09357 Assistance with Respiratory Ventilation, Less than 24 Consecutive Hours, Continuous Positive Airway Pressure (ICD-10-PCS; 2018-05-04)
PROC: 5A2204Z Restoration of Cardiac Rhythm, Single (ICD-10-PCS; principal; 2018-05-07)
DX: J69.0 Pneumonitis due to inhalation of food and vomit (principal); J96.01 Acute respiratory failure with hypoxia; I50.33 Acute on chronic diastolic (congestive) heart failure; N17.0 Acute kidney failure with tubular necrosis; E43 Unspecified severe protein-calorie malnutrition; N18.4 Chronic kidney disease, stage 4 (severe); I13.0 Hypertensive heart and chronic kidney disease with heart failure and stage 1 through stage 4 chronic kidney disease, or unspecified chronic kidney disease; N25.81 Secondary hyperparathyroidism of renal origin; I48.92 Unspecified atrial flutter; I35.0 Nonrheumatic aortic (valve) stenosis; I95.89 Other hypotension; Z66 Do not resuscitate; Z51.5 Encounter for palliative care; K21.9 Gastro-esophageal reflux disease without esophagitis; E03.9 Hypothyroidism, unspecified; D64.9 Anemia, unspecified; H54.61 Unqualified visual loss, right eye, normal vision left eye; I48.2 Chronic atrial fibrillation; I48.0 Paroxysmal atrial fibrillation; R00.1 Bradycardia, unspecified; I25.10 Atherosclerotic heart disease of native coronary artery without angina pectoris; K57.90 Diverticulosis of intestine, part unspecified, without perforation or abscess without bleeding; Z96.653 Presence of artificial knee joint, bilateral; I69.320 Aphasia following cerebral infarction; I25.2 Old myocardial infarction; Z88.2 Allergy status to sulfonamides; Z88.1 Allergy status to other antibiotic agents; Z88.8 Allergy status to other drugs, medicaments and biological substances; Z98.42 Cataract extraction status, left eye; Z98.41 Cataract extraction status, right eye; Z90.49 Acquired absence of other specified parts of digestive tract; Z90.721 Acquired absence of ovaries, unilateral; Z87.891 Personal history of nicotine dependence; Z82.49 Family history of ischemic heart disease and other diseases of the circulatory system; Z79.82 Long term (current) use of aspirin; Z79.899 Other long term (current) drug therapy; Z68.24 Body mass index [BMI] 24.0-24.9, adult

== ENCOUNTER → 2018-05-17 | Outpatient (CLI) | payer MEDICARE ==
[~2018-05-17] MED LIST changes: +COREG6.25 MG PO
[2018-05-17 13:45] LABS: HEMATOCRIT 29.2 % (37.0-47.0)
[2018-05-17 13:51] LABS: CREATININE 2.51 mg/dL (0.55-1.02); PHOSPHOROUS 3.8 mg/dL (2.5-4.9); POTASSIUM 3.7 mmol/L (3.5-5.1)
[2018-05-17 13:58] LABS: PTH INTACT 143.6 pg/mL (18.5-88.0); VITAMIN D, 25-HYDROXY 40.9 ng/mL (30-100)
== END | disposition home or self-care (01) ==
LOC: LAB 12:24
PROVIDERS: Internal Medicine Nephrology
DX: N18.4 Chronic kidney disease, stage 4 (severe) (principal)